=== PATIENT | female | born 1975 | race Caucasian/White ===

== ENCOUNTER 2019-03-24 12:28 | Emergency (ER) | payer SELFPAY ==
[2019-03-24 12:43] VITALS: BP 145/96; PULSE 73; RESP 16; TEMP 36.2; O2SAT 96; BMI 28.1
--- NOTE | 2019-03-24 14:16 | ED.ANXIETY ---
HPI - Anxiety General Chief Complaint: Anxiety Stated Complaint: depression anxiety Time Seen by Provider: 03/24/19 13:21 Source: patient Mode of arrival: ambulatory Limitations: no limitations History of Present Illness HPI narrative: Patient comes emergency department complaining of daily panic attacks for the last month and a half. She states she has had multiple bad things happen her life over the last few months, including a recent divorce, sudden loss of her job, the of her grandmother and to pets. Patient states she does not have a lot of support from her family, who lives in [place]. 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 She states that she has a history of anxiety and panic attacks, for which she has previously been on Wellbutrin and as needed Valium. However, she states that she has not been any meds for a couple of months. Patient states she tried to be seen by her primary care physician through the [employer], but was told that she has been kicked off , and could not be seen there. She states that she could hardly drive because she was hyperventilating and nauseated. Patient states that she has been awakening in the middle of the night with severe episodes of hyperventilation. She states that she does not feel suicidal, but that she is very anxious and upset and does not know where to go from here. Patient states the hyperventilation on lack of sleep have been making her feel nauseated. Patient states she is otherwise healthy. She states previous panic attacks have not been nearly as bad as the ones she has been having on a daily basis since February 04. Patient states she does not drink alcohol or use drugs. Related Data Previous Rx's Medication Instructions Recorded bupropion HCl [Wellbutrin SR] 100 mg PO DAILY #30 each 03/24/19 diazepam [Valium] 5 mg PO TID PRN #20 tab 03/24/19 zolpidem [Ambien] 10 mg PO BEDTIME PRN #14 tab 03/24/19 Allergies Allergy/AdvReac Type Severity Reaction Status Date / Time No Known Drug Allergies Allergy Verified 03/24/19 12:43 Review of Systems Constitutional Denies chills, Denies fever(s), Denies lethargy and Denies weakness Eyes Denies change in vision, Denies eye discharge, Denies irritation and Denies loss of vision ENT Ears, Nose, Mouth, and Throat: Denies change in voice, Denies neck pain and Denies sore throat Cardiovascular Denies chest pain, Denies irregular heart rhythm, Denies lightheadedness, Denies palpitations, Denies dyspnea, Denies dyspnea on exertion and Denies orthopnea Respiratory Denies cough, Denies dyspnea, Denies dyspnea on exertion and Denies wheezing Gastrointestinal Gastrointestinal: Denies abdominal pain, Denies change in bowel habits, Denies diarrhea, Denies nausea and Denies vomiting Genitourinary Denies hematuria, Denies flank pain, Denies urinary incontinence and Denies urinary urgency Musculoskeletal Denies neck pain Integumentary/Breasts Denies pruritus, Denies erythema, Denies rash and Denies wounds Neurologic Denies confusion, Denies loss of vision and Denies weakness Psychiatric Reports anxiety, Denies confusion, Reports depression, Denies homicidal ideation and Denies suicidal ideation Endocrine Denies palpitations Hematologic/Lymphatic Denies easy bruising Allergic/Immunologic Denies wheezing [facility] Medical History Panic attack (Acute) Anxiety (Acute) Surgical History No pertinent past surgical history (Acute) Social History Smoking Status: Never smoker alcohol intake: never substance use type: does not use Social History Smoking Status: Never smoker alcohol intake: never substance use type: does not use Exam Initial Vital Signs Initial Vital Signs: Vital Signs Temperature 97.1 F L 03/24/19 12:43 Pulse Rate 73 03/24/19 12:43 Respiratory Rate 16 03/24/19 12:43 Blood Pressure 145/96 H 03/24/19 12:43 Pulse Oximetry 96 03/24/19 12:43 Const General: cooperative and well developed Nutritional Appearance: well nourished Orientation: alert, awake, oriented x3 and not confused [facility] Head: normocephalic and atraumatic Ears: external ears normal Nose: external nose normal and No nasal discharge Face and sinus: face symmetric and No dry mucous membranes Mouth: oral mucosae normal and moist mucous membranes Teeth and gingiva: dentition normal Eyes General: appearance normal, both eyes and all related structures Eyelids: eyelids normal Conjunctivae: conjunctivae normal Sclera: sclerae normal Pupils: PERRL EOM: EOM intact bilaterally Neck Neck: normal visual inspection, trachea midline, No lymphadenopathy, No midline deformity and No JVD Lymphatic: No lymphedema Chest Chest: normal inspection of the chest Resp Effort & Inspection: normal respiratory effort, able to speak in complete sentences, no respiratory distress and no use of accessory muscles Auscultation: clear to auscultation bilaterally, no rales, no rhonchi and no wheezes Other: Patient has good air movement bilaterally and nonlabored respirations, but is hyperventilating. Cardio Rate: regular rate Rhythm: regular rhythm Heart Sounds: no click, no gallops, no murmurs and no rubs Pulses: normal peripheral pulses GI Inspection: non-distended Palpation: soft, no hepatosplenomegaly, No guarding, No pulsatile mass and No tender Auscultation: normal bowel sounds Back/Spine/Pelvis Back: No CVA tenderness Cervical Spine: cervical ROM normal and No pain with cervical ROM Thoracic/Lumbar Spine: thoracic and lumbar spine normal to inspection Skin General: no rashes or lesions noted, No jaundice and No petechiae Neuro General: alert, oriented x3, gait normal and no focal motor deficits Speech: speech normal Extrem General: full ROM, no clubbing, cyanosis or edema, no pedal edema and no calf tenderness Psych Appearance: well kempt Mental Status: mental status grossly normal Attitude: cooperative Thought Content: normal and suicidality Judgment: judgment good Other: Patient is tearful and hyperventilating. She is sobbing and retching, and visibly anxious. Course Course Narrative: Patient was treated symptomatically in the emergency department with Valium, Zofran, and IV fluids, and was found to be feeling much better on re-evaluation. We have discussed home treatment the patient's symptoms while she attempts to get established with a new primary care physician. I have agreed to restart her Wellbutrin, which she has been on previously. I have also given her a small prescription for Valium and Ambien to help with anxiety and sleep disturbance. The patient has been advised regarding follow-up. We have also discussed the usual indications for return. Orders Ordered: Discontinued Medications Diazepam (Valium) 5 mg IV NOW ONE Stop: 03/24/19 14:16 Last Admin: 03/24/19 14:25 Dose: 5 mg Sodium Chloride (Normal Saline 0.9%) 1,000 mls @ 1,000 mls/hr IV BOLUS ONE Stop: 03/24/19 15:14 Last Infusion: 03/24/19 15:52 Dose: 0 mls/hr Admin: 03/24/19 14:25 Dose: 1,000 mls/hr Ketorolac Tromethamine (Toradol) 30 mg IV NOW ONE Stop: 03/24/19 15:13 Last Admin: 03/24/19 15:17 Dose: 30 mg Morphine Sulfate (Morphine) 4 mg IV NOW ONE Stop: 03/24/19 15:12 Last Admin: 03/24/19 15:17 Dose: 4 mg Ondansetron HCl (Zofran) 4 mg IV NOW ONE Stop: 03/24/19 14:16 Last Admin: 03/24/19 14:25 Dose: 4 mg Vital Signs - 8 hr 03/24/19 12:43 Temperature 97.1 F L Pulse Rate 73 Respiratory Rate 16 Blood Pressure 145/96 H Pulse Oximetry 96 MDM - Anxiety Medical Records Attestation: I reviewed the patient's medical records. Discharge Plan Departure Patient Disposition: Home Clinical Impression: Anxiety, Panic attack, Acute reaction to situational stress Discharge Date/Time: 03/24/19 18:55 Interventions: ED Discharge Assessment Last Done: 03/24/19 16:23 Instructions: Anxiety and Panic Attacks (Alternative Therapy), DI for Anxiety -- Adult Activity Restrictions/Additional Instructions: Please call Family Medicine to set up an appointment to establish care within the next week. Prescriptions: New bupropion HCl [Wellbutrin SR] 100 mg tablet sustained-release 12 hr 100 mg PO DAILY Qty: 30 RF: 0 zolpidem [Ambien] 10 mg tablet 10 mg PO BEDTIME PRN (Reason: insomnia) Qty: 14 RF: 0 diazepam [Valium] 5 mg tablet 5 mg PO TID PRN (Reason: anxiety) Qty: 20 RF: 0 Referrals: [facility] [place] [[place] Group]
[2019-03-24] MEDS: SODIUM CHLORIDE 0.9% 1,000 ML 1000 ML IV (14:25)
[2019-03-24] MEDS: ONDANSETRON 4 MG/2 ML INJ IV (14:25)
[2019-03-24] MEDS: diazePAM 10 MG/2 ML SYRINGE 5 MG IV (14:25)
[2019-03-24 14:29] VITALS: BP 122/68; PULSE 57; RESP 18; O2SAT 100
[2019-03-24 15:09] VITALS: BP 107/68; PULSE 56; RESP 18; O2SAT 100
[2019-03-24] MEDS: MORPHINE 4 MG/ML INJ IV (15:17)
[2019-03-24] MEDS: KETOROLAC 60 MG/2 ML VIAL 30 MG IV (15:17)
--- NOTE | 2019-03-24 15:19 | PC.NURSE ---
pt reports, has been crying, now with migraine headache.
[2019-03-24 15:32] VITALS: BP 119/72; PULSE 69; RESP 18; O2SAT 99
[2019-03-24 16:14] VITALS: BP 113/66; PULSE 63; O2SAT 97
== END 2019-03-24 18:55 | disposition home or self-care (01) ==
PROVIDERS: Emergency Provider Emergency Medicine
DX: F41.9 Anxiety disorder, unspecified (principal); F41.0 Panic disorder [episodic paroxysmal anxiety]; F43.0 Acute stress reaction
CPT/HCPCS: 36591; 96361; 96374; 96375; 99283; 99284; J1885; J2270; J2405; J3360